=== PATIENT | female | born 1955 | race Caucasian/White ===

== ENCOUNTER 2022-08-09 08:02 | Day surgery (SDC) | payer MEDICARE, SELFPAY ==
--- NOTE | 2022-08-08 11:56 | HO.ANESPROP2 ---
Documented by User: April Artis NP 08/08/22 12:00 HPI - Anesthesia Eval Consult details Narrative: 67yo F for Upper Endoscopy and Colonoscopy [facility] Past Medical History Medical History (Updated 08/08/22 @ 11:59 by April Artis NP) Back pain GERD (gastroesophageal reflux disease) HTN (hypertension) Hypothyroid Surgical History Surgical History (Updated 08/08/22 @ 11:59 by April Artis NP) H/O foot surgery H/O laparoscopy H/O reduction mammoplasty H/O wrist surgery History of cholecystectomy Social History Social History Patient Tobacco Use Status: Never used Tobacco Use of substances other than those prescribed or required for medical reasons: No Are you DNR?: No Advance Directives: No Advance Directives Information Provided: Yes Meds Allergies Allergy/AdvReac Type Severity Reaction Status Date / Time No Known Allergies Allergy Verified 08/09/22 08:34 Home Medications Medication Instructions Recorded Confirmed Last Taken Type levothyroxine 200 mcg tablet 1 tab PO QAM 08/08/22 08/09/22 Unknown History lisinopril 10 mg tablet 1 tab PO DAILY 08/08/22 08/09/22 08/09/22 06:00 History omeprazole 40 mg capsule,delayed 1 cap PO DAILY 08/08/22 08/09/22 Unknown History release tramadol 50 mg tablet 1 tab PO Q6H PRN Pain 08/08/22 08/09/22 Unknown History Exam Exam Date and Time: August 08, 2022 115 Assessment and Plan Assessment Anesthesia Assessment: Chart Reviewed Documented by User: Emily Sanchez MD 08/09/22 10:17 [facility] Past Medical History Medical History (Updated 08/08/22 @ 11:59 by April Artis NP) Back pain GERD (gastroesophageal reflux disease) HTN (hypertension) Hypothyroid Family History Family history of problems with anesthesia: No Surgical History Surgical History (Updated 08/08/22 @ 11:59 by April Artis NP) H/O foot surgery H/O laparoscopy H/O reduction mammoplasty H/O wrist surgery History of cholecystectomy Social History Social History Patient Tobacco Use Status: Never used Tobacco Use of substances other than those prescribed or required for medical reasons: No Are you DNR?: No Advance Directives: No Advance Directives Information Provided: Yes Meds Allergies Allergy/AdvReac Type Severity Reaction Status Date / Time No Known Allergies Allergy Verified 08/09/22 08:34 Home Medications Medication Instructions Recorded Confirmed Last Taken Type levothyroxine 200 mcg tablet 1 tab PO QAM 08/08/22 08/09/22 Unknown History lisinopril 10 mg tablet 1 tab PO DAILY 08/08/22 08/09/22 08/09/22 06:00 History omeprazole 40 mg capsule,delayed 1 cap PO DAILY 08/08/22 08/09/22 Unknown History release tramadol 50 mg tablet 1 tab PO Q6H PRN Pain 08/08/22 08/09/22 Unknown History Exam Airway Mallampati Class: II TM Dist: >3cm Neck ROM: Full Denture: Upper Loose/Missing/Broken Teeth: No Heart: rr Lungs: cta Assessment and Plan Final Anesthetic Review Family History of Problems with Anesthesia: No NPO: Yes ASA Class: II Final Preanesthetic Review: No Changes in Pt Med Stat Patient Risk: Low Procedure Risk: Low Anesthetic Plan Anesthetic Plan: MAC: Disposition: Standard PACU
[2022-08-09 08:35] VITALS: BMI 27.1
[2022-08-09 08:53] VITALS: BP 136/71; PULSE 90; RESP 16; TEMP 36.6; O2SAT 98
[2022-08-09] MEDS: Lactated Ringers 1,000 ML 100 ML IVCONT (09:15)
--- NOTE | 2022-08-09 09:31 | MHC.SHP ---
Pre-Procedural Eval Section A Date of Service: 08/09/22 The patient is an INPATIENT: No Changes since office visit: No Cold of Flu in the past 2 weeks, No New Medical Problems, No Changes in Medication and No Patient answered all questions The History & Physical has been completed within 30 days and I have reviewed it.: Yes Section B Chief Complaint: screening,reflux Allergies: Allergies Allergy/AdvReac Type Severity Reaction Status Date / Time No Known Allergies Allergy Verified 08/09/22 08:34 Plan I have reviewed the history and physical and performed a pertinent physical examination on my patient. No changes have occurred unless specified.
--- NOTE | 2022-08-09 10:21 | P.BOP_ITS ---
Brief Operative Note Date of Service: 08/09/22 Pre-op diagnosis: gerd,screening Post-op diagnosis: same Surgeon: Aditya Denis Anesthesia: MAC Was an System Administration Manager used for this Procedure?: No Estimated blood loss (mL): 2 Pathology: other Condition: stable Disposition: PACU
[2022-08-09 10:25] VITALS: BP 93/49; PULSE 89; RESP 12; TEMP 36.2; O2SAT 99
[2022-08-09 10:40] VITALS: BP 113/58; PULSE 77; RESP 16; TEMP 36.2; O2SAT 96
--- NOTE | 2022-08-09 21:45 | OP_ITS ---
SURGEON: Aditya Denis MD INDICATIONS: Gastroesophageal reflux disease and colon cancer screening. PREOPERATIVE DIAGNOSIS: POSTOPERATIVE DIAGNOSIS: PROCEDURE PERFORMED: Upper endoscopy with biopsy, colonoscopy to the terminal ileum with snare polypectomy. ESTIMATED BLOOD LOSS: COMPLICATIONS: ANESTHESIA: Monitored anesthesia care. ASSISTANTS: SPECIMENS: DESCRIPTION OF PROCEDURE: History and physical performed. The risks and benefits of the procedure were explained to the patient. The procedure was performed on 08/09. Informed consent was obtained. The patient was placed in the left lateral decubitus position. The Olympus video gastroscope was introduced into the esophagus, stomach, and duodenum. Examination was performed. The scope was removed. She was repositioned for colonoscopy. Digital rectal exam was performed and was found to be normal. The Olympus pediatric video colonoscope was introduced into the rectum and advanced to the cecum without difficulty. The cecum was identified by transillumination, palpation, and identification of ileocecal valve. Examination was performed. The scope was removed. She tolerated the procedure well and was taken to recovery room in stable condition. FINDINGS: Upper endoscopy: Esophagus: There was mild distal esophagitis. There was a small 3 cm hiatal hernia. Biopsies were obtained from the EG junction. Stomach: Stomach showed multiple benign-appearing gastric polyps, all measuring 10 mm or less, mainly in the fundus, 2 of these were biopsied. Antral biopsies were obtained to evaluate for H pylori. Duodenum: The bulb and second portion were normal. Colonoscopy: The terminal ileum was normal. The visualized colonic mucosa was within normal limits without evidence of masses or ulcers. At 80 cm was less than 10 mm sessile polyp, which was removed with a snare and recovered via suction. No other polyps were identified. The quality of the prep was good. Retroflexed examination was normal. IMPRESSION: 1. Gastroesophageal reflux disease with esophagitis. 2. Hiatal hernia. 3. Gastric polyps. 4. Colon polyp. RECOMMENDATIONS: Follow up the biopsy results. MD KELI Villatoro/SASCHA / [id number] MTDD
== END 2022-08-09 11:30 | disposition home or self-care (01) ==
PROVIDERS: PCP Family Medicine; Visit Provider Internal Medicine Gastroenterology
PROC: (CPT 45385; principal; 2022-08-09 09:20)
DX: Z12.11 Encounter for screening for malignant neoplasm of colon (principal); D12.6 Benign neoplasm of colon, unspecified; Z86.010 Personal history of colon polyps; K21.00 Gastro-esophageal reflux disease with esophagitis, without bleeding; K31.7 Polyp of stomach and duodenum; K44.9 Diaphragmatic hernia without obstruction or gangrene; I10 Essential (primary) hypertension; Z79.899 Other long term (current) drug therapy; Z90.49 Acquired absence of other specified parts of digestive tract
CPT/HCPCS: 45385; 43239; 88305; 88342